=== PATIENT | male | born 1985 | race Caucasian/White ===

== ENCOUNTER 2018-01-29 16:46 | Emergency (ER) | payer SELFPAY ==
[2018-01-29] MEDS ORDERED: Ibuprofen 800 MG TAB ONE (17:09)
[2018-01-29] MEDS ORDERED: HYDROcodone/Acetaminophen 10/325 mg Tablet ONE (17:09)
== END 2018-01-29 17:22 | disposition home or self-care (01) ==
LOC: NAV ERS 16:46
DX: S00.83XA Contusion of other part of head, initial encounter (principal); F17.210 Nicotine dependence, cigarettes, uncomplicated; W22.8XXA Striking against or struck by other objects, initial encounter
CPT/HCPCS: 99283

== ENCOUNTER 2019-02-08 18:34 | Emergency (ER) | payer SELFPAY | END 2019-02-08 21:00 | LOC: NAV ERS 18:34 | DX: S01.81XA Laceration without foreign body of other part of head, initial encounter (principal); F10.129 Alcohol abuse with intoxication, unspecified; F17.210 Nicotine dependence, cigarettes, uncomplicated; V89.2XXA Person injured in unspecified motor-vehicle accident, traffic, initial encounter | CPT/HCPCS: 99283 ==